=== PATIENT | female | born 1985 | race Caucasian/White ===

== ENCOUNTER 2017-11-20 10:00 | Inpatient (IN) | payer OTHER ==
[~2017-11-20] VITALS: Ht 165.1 cm; Wt 79.4 kg
[2017-11-20] MEDS ORDERED: AVITENE (12:34)
[2017-11-30] MEDS ORDERED: KETO10TA2 PO (08:17)
[2017-11-30] MEDS ORDERED: CODE1TAB37 PO (08:17)
== END 2017-11-30 08:56 | disposition home or self-care (01) | DRG 743 ==
LOC: OB/GYN 11-26 11:03 → SURG 11-27 07:00 → SURG-SUITE 11-27 10:00 → SURG 11-27 10:00 → OB/GYN 11-30 08:56
PROC: 0UT90ZZ Resection of Uterus, Open Approach (ICD-10-PCS; principal; 2017-11-26)
PROC: 0TJB8ZZ Inspection of Bladder, Via Natural or Artificial Opening Endoscopic (ICD-10-PCS; 2017-11-26)
PROC: 30233N1 Transfusion of Nonautologous Red Blood Cells into Peripheral Vein, Percutaneous Approach (ICD-10-PCS; 2017-11-26)
DX: D25.0 Submucous leiomyoma of uterus (principal); N84.0 Polyp of corpus uteri; N72 Inflammatory disease of cervix uteri; D50.0 Iron deficiency anemia secondary to blood loss (chronic); D25.1 Intramural leiomyoma of uterus; N81.11 Cystocele, midline; N92.1 Excessive and frequent menstruation with irregular cycle